=== PATIENT | female | born 1975 | race Caucasian/White ===

== ENCOUNTER 2019-03-06 21:52 | Emergency (ER) | payer OTHER ==
[~2019-03-06] VITALS: Ht 157.4 cm; Wt 117.9 kg
[2019-03-06] MEDS ORDERED: ZOLOFT100 MG PO (22:11)
[2019-03-06] MEDS ORDERED: CORTEF10 M1 PO (22:11)
[2019-03-06] MEDS ORDERED: TRAZODONE50 MG PO (22:12)
[2019-03-06] MEDS ORDERED: MIRALAX POWDER17 G1 PO (22:13)
[2019-03-06] MEDS ORDERED: MIDODRINE HCL5 M1 PO (22:14)
[2019-03-06] MEDS ORDERED: PROTONIX20 MG PO (22:15)
[2019-03-06] MEDS ORDERED: TYLENOL325 M1 PO (22:15)
[2019-03-07 02:57] LABS: BASO % 0.3 % (0.0-1.0); EOS # 0.1 10*3/uL (0.0-0.4); EOS % 1.6 % (1.0-4.0); HEMATOCRIT 38.6 % (37.0-47.0); HEMOGLOBIN 12.3 g/dl (12.0-16.0); LYMPH # 2.4 10*3/uL (1.3-4.4); LYMPH % 38.2 % (27.0-41.0); MEAN CELL VOLUME 87.3 fl (81.0-99.0); MEAN CORPUSCULAR HGB 27.8 pg (27.0-31.0); MEAN CORPUSCULAR HGB CONC 31.9 g/dl (33.0-37.0); MEAN PLATELET VOLUME 10.4 fl (9.6-12.3); MONO # 0.7 10*3/uL (0.1-1.0); MONO % 10.5 % (3.0-9.0); NEUT # 3.1 10*3/uL (2.3-7.9); NEUT % 49.2 % (47.0-73.0); PLATELET COUNT AUTOMATED 239 10*3/uL (130-400); RED BLOOD COUNT 4.42 10*6/uL (4.10-5.10); RED CELL DISTRI WIDTH 13.7 % (0-14.5); WHITE BLOOD COUNT 6.2 10*3/uL (4.8-10.8)
[2019-03-07 03:13] LABS: ALBUMIN 3.1 gm/dl (3.1-4.5); ALKALINE PHOSPHATASE 109 U/L (45-117); BUN 19 mg/dl (7-24); CHLORIDE 109 mmol/L (98-107); CREATININE 0.85 mg/dL (0.55-1.02); POTASSIUM 3.7 mmol/L (3.5-5.1); SGOT/AST 40 IU/L (3-35); SGPT/ALT 24 U/L (12-78); SODIUM 141 mmol/L (136-145); TOTAL PROTEIN 6.6 gm/dL (6.4-8.2)
== END 2019-03-07 09:17 | disposition short-term general hospital (02) ==
LOC: ED 21:52
PROVIDERS: Emergency Medicine Emergency Medical Services
DX: M54.41 Lumbago with sciatica, right side (principal); M54.42 Lumbago with sciatica, left side; M51.36 Other intervertebral disc degeneration, lumbar region; Z79.899 Other long term (current) drug therapy; Z91.040 Latex allergy status; Z91.013 Allergy to seafood; Z88.1 Allergy status to other antibiotic agents; W18.30XA Fall on same level, unspecified, initial encounter; Y93.89 Activity, other specified; Y92.512 Supermarket, store or market as the place of occurrence of the external cause; Y99.9 Unspecified external cause status

== ENCOUNTER 2020-01-23 22:25 | Emergency (ER) | payer OTHER ==
[~2020-01-23] VITALS: Ht 172.7 cm; Wt 104.3 kg
[~2020-01-23 22:25] MED LIST: CORTEF10 M1 PO; MIDODRINE HCL5 M1 PO; MIRALAX POWDER17 G1 PO; PROTONIX20 MG PO; TRAZODONE50 MG PO; TYLENOL325 M1 PO; ZOLOFT100 MG PO
[2020-01-23 22:56] LABS: BASO % 0.3 % (0.0-1.0); EOS # 0.2 10*3/uL (0.0-0.4); EOS % 3.2 % (1.0-4.0); HEMATOCRIT 39.6 % (37.0-47.0); LYMPH # 1.8 10*3/uL (1.3-4.4); MEAN CELL VOLUME 87.8 fl (81.0-99.0); MEAN CORPUSCULAR HGB 27.9 pg (27.0-31.0); MEAN CORPUSCULAR HGB CONC 31.8 g/dl (33.0-37.0); MEAN PLATELET VOLUME 10.1 fl (9.6-12.3); MONO # 0.6 10*3/uL (0.1-1.0); MONO % 8.4 % (3.0-9.0); NEUT # 4.5 10*3/uL (2.3-7.9); PLATELET COUNT AUTOMATED 238 10*3/uL (130-400); RED BLOOD COUNT 4.51 10*6/uL (4.10-5.10); RED CELL DISTRI WIDTH 11.9 % (0-14.5); WHITE BLOOD COUNT 7.1 10*3/uL (4.8-10.8)
[2020-01-23 23:06] LABS: ACT PARTIAL THROMBO TIME 27.2 SECONDS (20.0-32.1)
[2020-01-23 23:10] LABS: ALBUMIN 2.9 gm/dl (3.1-4.5); CREATININE 1.21 mg/dL (0.55-1.02); TOTAL PROTEIN 6.8 gm/dL (6.4-8.2)
[2020-01-24] MEDS ORDERED: NAPROSYN EC375 MG PO (02:21)
== END 2020-01-24 03:15 | disposition home or self-care (01) ==
LOC: ED 22:25
PROVIDERS: Emergency Medicine Emergency Medical Services
DX: S70.00XA Contusion of unspecified hip, initial encounter (principal); S80.00XA Contusion of unspecified knee, initial encounter; Z91.040 Latex allergy status; Z88.8 Allergy status to other drugs, medicaments and biological substances; Z79.899 Other long term (current) drug therapy; X58.XXXA Exposure to other specified factors, initial encounter; Y93.89 Activity, other specified; Y92.89 Other specified places as the place of occurrence of the external cause; Y99.8 Other external cause status

== ENCOUNTER 2020-09-11 13:32 | Emergency (ER) | payer OTHER ==
[~2020-09-11] VITALS: Ht 154.9 cm; Wt 104.3 kg
[~2020-09-11 13:32] MED LIST changes: +NAPROSYN EC375 MG PO
[2020-09-11] MEDS ORDERED: VISTARIL25 MG PO (13:49)
[2020-09-11] MEDS ORDERED: ELIMITE 5%60 GM T (13:49)
== END 2020-09-11 14:02 | disposition home or self-care (01) ==
LOC: ED 13:32
DX: B86 Scabies (principal); K21.9 Gastro-esophageal reflux disease without esophagitis; Z88.8 Allergy status to other drugs, medicaments and biological substances; Z91.013 Allergy to seafood; Z91.040 Latex allergy status; Z79.899 Other long term (current) drug therapy

== ENCOUNTER → 2021-02-07 | Outpatient (CLI) | payer OTHER ==
[~2021-02-07] MED LIST changes: +ELIMITE 5%60 GM T; +VISTARIL25 MG PO
== END | disposition home or self-care (01) ==
LOC: COVID19 15:51
PROVIDERS: ATTEND Hospitalist
DX: Z11.52 Encounter for screening for COVID-19 (principal)

== ENCOUNTER 2022-09-14 20:10 | Emergency (ER) | payer OTHER ==
[~2022-09-14] VITALS: Ht 154.9 cm; Wt 113.4 kg
[2022-09-14] MEDS ORDERED: NAPROSYN500 MG PO (21:43)
== END 2022-09-14 21:46 | disposition home or self-care (01) ==
LOC: ED 20:10
DX: S96.912A Strain of unspecified muscle and tendon at ankle and foot level, left foot, initial encounter (principal); Z91.040 Latex allergy status; Z88.1 Allergy status to other antibiotic agents; Z91.013 Allergy to seafood; Z79.899 Other long term (current) drug therapy; X58.XXXA Exposure to other specified factors, initial encounter; Y93.89 Activity, other specified; Y92.89 Other specified places as the place of occurrence of the external cause; Y99.8 Other external cause status